=== PATIENT | female | born 1970 | race Two or more races ===

== ENCOUNTER 2020-06-23 08:53 | Outpatient (CLI) | payer OTHER | END 2020-06-23 09:23 | disposition home or self-care (01) | LOC: NUCLEAR 08:53 | PROVIDERS: ATTEND General Practice | DX: I10 Essential (primary) hypertension (principal); I20.9 Angina pectoris, unspecified ==

== ENCOUNTER 2025-07-01 10:15 | Inpatient (IN) | payer OTHER ==
[~2025-07-01] VITALS: Ht 170.2 cm; Wt 149.7 kg
[2025-07-01 11:29] VITALS: BP 127/80
[2025-07-01 11:31] VITALS: BP 157/87
[2025-07-01] MEDS ORDERED: ATACAND16 MG PO (11:36)
[2025-07-01] MEDS ORDERED: PROPRANOLOL HCL20 MG PO (11:36)
[2025-07-01] MEDS ORDERED: CYTOMEL5 MCG PO (11:37)
[2025-07-01] MEDS ORDERED: MELOXICAM15 MG PO (11:37)
[2025-07-01] MEDS ORDERED: JARDIANCE10 MG PO (11:37)
[2025-07-01] MEDS ORDERED: LEVOTHYROXINE25 MCG PO (11:38)
[2025-07-08] MEDS ORDERED: METRONIDAZOLE/SODIUM CHLORIDE 500 MG/100 ML PIGGYBACK IV ONE (05:34)
[2025-07-08] MEDS ORDERED: CEFAZOLIN SODIUM 1,000 MG VIAL ONE ×2 (05:34→16:49)
[2025-07-08] MEDS ORDERED: THROMBIN,HU/FIBRINOGEN/CALCIUM 10 ML SYRINGE TOP ONE (07:00)
[2025-07-08] MEDS ORDERED: VISTASEAL DUAL APPICATOR 1 EACH APPL TOP ONE (07:00)
[2025-07-08] MEDS ORDERED: SUGAMMADEX SODIUM 200 MG/2 ML VIAL IV ONE ×2 (07:00→09:02)
[2025-07-08] MEDS ORDERED: POVIDONE-IODINE 118 ML BOTT TOP ONE (07:59)
[2025-07-08] MEDS ORDERED: CEFAZOLIN SODIUM 1,000 MG VIAL IV ONE (08:05)
[2025-07-08] MEDS ORDERED: OxyCODONE HCL 5 MG TABLET (ROXICODONE) PO PRN (09:00)
[2025-07-08] MEDS ORDERED: SIMETHICONE 125 MG CAPSULE PO SCH (09:00)
[2025-07-08] MEDS ORDERED: KETOROLAC TROMETHAMINE 30 MG VIAL IV ONE (09:00)
[2025-07-08] MEDS ORDERED: RINGERS SOLUTION,LACTATED 1,000 ML IV SCH (09:00)
[2025-07-08] MEDS ORDERED: FAMOTIDINE/PF 20 MG/2 ML VIAL IV PUSH SCH (09:00)
[2025-07-08] MEDS ORDERED: DOCUSATE SODIUM 100MG CAP PO SCH (09:00)
[2025-07-08] MEDS ORDERED: MORPHINE SULFATE 4 MG/ML CARTRIDGE IV PRN (09:00)
[2025-07-08] MEDS ORDERED: CEFAZOLIN SODIUM 1,000 MG VIAL IV SCH (09:00)
[2025-07-08] MEDS ORDERED: KETOROLAC TROMETHAMINE 30 MG VIAL ONE (10:43)
[2025-07-08] MEDS ORDERED: FAMOTIDINE/PF 20 MG/2 ML VIAL ONE (10:43)
[2025-07-08] MEDS ORDERED: ACETAMINOPHEN 500 MG GEL..CAP PO SCH (12:00)
[2025-07-08 12:26] LABS: BASO % 0.4 % (0.1-1.2); EOS # 0.03 (0.04-0.54); EOS % 0.3 % (0.7-7.0); LYMPH # 1.17 (1.18-3.74); LYMPH % 11.1 % (19.3-53.1); MEAN PLATELET VOLUME 10.40 fl (9.4-12.4); MONO # 0.58 (0.24-0.82); MONO % 5.5 % (4.7-12.5); NEUT # 8.67 (1.56-6.13); NEUT % 82.4 % (34.0-71.1); RED CELL DISTRIBUTION WIDTH 13.4 % (11.6-14.4)
[2025-07-08 12:58] LABS: BUN CREA RATIO 22.0 (7.0-25.0); CREATININE SERUM 0.59 mg/dL (0.55-1.02); GFR 105.06; GLUCOSE FASTING 96.0 mg/dL (65-100); OSMOLALITY SERUM 283.0 MOSM/KG (275-295)
[2025-07-08] MEDS ORDERED: METOCLOPRAMIDE HCL 5 MG/ML VIAL IV SCH (13:00)
[2025-07-08 17:23] VITALS: BP 127/80
[2025-07-08] MEDS ORDERED: CELECOXIB 200 MG CAPSULE PO SCH (21:00)
[2025-07-08] MEDS ORDERED: GABAPENTIN 300 MG CAPSULE PO SCH (21:00)
[2025-07-09] VITALS: BP 139/78; O2SAT 98
[2025-07-09 02:45] LABS: BASO % 0.5 % (0.1-1.2); EOS # 0.07 (0.04-0.54); EOS % 0.7 % (0.7-7.0); LYMPH # 1.35 (1.18-3.74); LYMPH % 13.0 % (19.3-53.1); MEAN PLATELET VOLUME 10.90 fl (9.4-12.4); MONO # 0.83 (0.24-0.82); MONO % 8.0 % (4.7-12.5); NEUT # 8.08 (1.56-6.13); NEUT % 77.5 % (34.0-71.1); RED CELL DISTRIBUTION WIDTH 13.4 % (11.6-14.4)
[2025-07-09 03:15] LABS: BUN CREA RATIO 18.0 (7.0-25.0); CREATININE SERUM 0.6 mg/dL (0.55-1.02); GFR 103.04; GLUCOSE FASTING 89.0 mg/dL (65-100); OSMOLALITY SERUM 282.0 MOSM/KG (275-295)
[2025-07-09 04:30] VITALS: BP 114/72
[2025-07-09] MEDS ORDERED: ENOXAPARIN SODIUM 40 MG/0.4 ML SYRINGE SUBCUTANEO SCH (09:00)
[2025-07-09 09:30] VITALS: BP 98/60
== END 2025-07-09 11:28 | disposition home or self-care (01) | DRG 743 ==
LOC: OB/GYN 07-08 05:30 → O/R 07-08 06:00 → OB/GYN 07-08 10:15
PROVIDERS: Obstetrics & Gynecology; ADMIT Obstetrics & Gynecology Gynecologic Oncology; ATTEND Obstetrics & Gynecology Gynecologic Oncology
PROC: 07BC4ZZ Excision of Pelvis Lymphatic, Percutaneous Endoscopic Approach (ICD-10-PCS; 2025-07-08)
PROC: 0UT74ZZ Resection of Bilateral Fallopian Tubes, Percutaneous Endoscopic Approach (ICD-10-PCS; 2025-07-08)
PROC: 0UT24ZZ Resection of Bilateral Ovaries, Percutaneous Endoscopic Approach (ICD-10-PCS; 2025-07-08)
PROC: 8E0W4CZ Robotic Assisted Procedure of Trunk Region, Percutaneous Endoscopic Approach (ICD-10-PCS; 2025-07-08)
PROC: 0UT94ZZ Resection of Uterus, Percutaneous Endoscopic Approach (ICD-10-PCS; principal; 2025-07-08 05:30)
DX: N72 Inflammatory disease of cervix uteri (principal); N80.03 Adenomyosis of the uterus
CPT/HCPCS: 58548; S2900